=== PATIENT | male | born 1980 | race Caucasian/White ===

== ENCOUNTER 2020-09-01 10:43 | Emergency (ER) | payer OTHER, SELFPAY ==
[2020-09-01 10:45] VITALS: BP 141/100; PULSE 87; RESP 18; TEMP 36.1; O2SAT 99; BMI 33.5
--- NOTE | 2020-09-01 10:46 | NURSING ---
NO OLD EKGS
[2020-09-01 10:49] VITALS: BP 135/94; PULSE 70; RESP 16; O2SAT 97
--- NOTE | 2020-09-01 11:05 | EKG12_ITS ---
Test Reason : CP Blood Pressure : / mmHG Vent. Rate : 064 BPM Atrial Rate : 064 BPM P-R Int : 176 ms QRS Dur : 090 ms QT Int : 388 ms P-R-T Axes : 035 008 024 degrees QTc Int : 400 ms Normal sinus rhythm Normal ECG Confirmed by ANDREA MCKEON, VAMSI ([id number]), editor managing newspaper GISELA MURRIETA ([id number]) on 09/04/2020 11:39:10 A M Referred By: AKIL Confirmed By:TIANNA MENDEZ MD
--- NOTE | 2020-09-01 11:06 | ED.VISSUMM ---
- ER Visit Summary Date of Service: 09/01/20 Chief Complaint: Chest pain History of Present Illness: The patient is a 39 M who presents with chest pain that has been constant for the past 5 days. Patient states it is gradually gotten worse. Patient describes the pain is dull. Patient states the pain is over the substernal area. Patient states nothing makes it better and nothing makes it worse. Patient admits to some mild shortness of breath. Patient also admits to some lightheadedness. Patient denies any nausea or vomiting. Patient denies any diaphoresis. Patient denies any fevers or chills. Patient denies any cough or palpitations. Patient denies any cardiac or PE risk factors. Physical Examination: Vital signs are stable. Patient is afebrile. Patient is in no acute distress. Oral mucosa is pink and moist. Neck is supple. Trachea is midline. There is no JVD noted. Heart was regular rate and rhythm. Lungs are clear and equal bilaterally. Abdomen is soft. Bowel sounds are normal. There is no tenderness. There is no rebound or guarding noted. Skin is warm dry. Cranial nerves II through XII are intact. There are no focal motor or sensory deficits noted. Extremities are intact. There is no calf tenderness or edema. Test Results: EKG was obtained. On my interpretation, there is a normal sinus rhythm with a rate of 64. There are no acute ST or T wave changes. Portable 1 view chest x-ray was obtained. On my interpretation, lung bishop are clear. There is normal cardiac silhouette. Bony thorax is normal. There is no acute process noted. Radiologist also interpreted the x-ray and agrees. CBC, basic metabolic profile, and troponin were obtained and were all within normal limits. Emergency Department Course and Treatment: Patient was given aspirin here. Patient is feeling better on reevaluation. Patient was advised of his findings. Patient has a HEART score of 1. Patient was advised that this is low risk for acute cardiac event. Patient was instructed to follow-up with his primary care physician in 5 to 7 days. Patient understood and was agreeable with the plan. All questions were answered. Disposition: Discharge home Impression: Chest pain of uncertain etiology This note was generated with [employer] dictation software. It may contain incorrect words, spelling, and punctuation that were not noted in review of the chart prior to signing ED Disposition - Plan for ED Patient: Disposition: Home or Assisted Living Diagnosis: Chest pain of uncertain etiology Instructions: ED Chest Pain, Uncertain Cause Referrals: David,Steff, [NON-STAFF] - 5-7 Days
[2020-09-01 11:21] LABS: Absolute Lymphocyte Count 1.45 X10^3/uL (0.83-4.51); Absolute Neutrophil Count 5.4 X10^3/uL (2.0-7.7); Basophil# 0.06 X10^3/uL; Basophil% 0.8 % (0-1); Eosinophil# 0.07 X10^3/uL; Eosinophils% 0.9 % (0-5); Hematocrit 53.6 % (40-54); Hemoglobin 18.1 g/dL (13.0-16.5); Lymphocyte # 1.45 X10^3/ul (4.0); Lymphocyte % 19.3 % (19-41); Mean Corp Hgb Conc 33.8 g/dL (32-36); Mean Corpuscular Hgb 30.7 pg (27.0-32.0); Mean Platelet Vol. 8.6 fl (6.2-12.0); Monocyte# 0.52 X10^3/uL; Monocyte% 6.9 % (0-10); NRBC Flagged by Analyzer 0 % (0-5); Neutrophil % 71.8 % (47-70); Platelet Count 308 K/mm3 (150-450); RBC Distribution Width CV 11.7 % (11.6-14.6); Red Blood Count 5.89 M/mm3 (4.6-6.2); White Blood Count 7.5 K/mm3 (4.4-11.0)
[2020-09-01 11:33] LABS: Anion Gap 1 (5-15); BUN 19 mg/dL (7-18); BUN/Creat Ratio 14.7 RATIO (10-20); Calcium,Total 8.9 mg/dL (8.5-10.1); Chloride 102 mmol/L (98-107); Creatinine, Serum 1.29 mg/dL (0.70-1.30); EST Glomerular Filtration Rate 66 mL/min (>60); Est Glom Filt Rate - Afr Amer 79 mL/min (>60); Estimated Creatinine Clearance 94.39 ml/min; Glucose 84 mg/dL (74-106); Potassium 4.3 mmol/L (3.5-5.1); Sodium Level 136 mmol/L (136-145)
[2020-09-01 11:37] LABS: Differential Indicated SCAN CRITERIA MET
[2020-09-01 11:41] VITALS: O2SAT 97
--- NOTE | 2020-09-01 11:45 | RAD_ITS ---
STUDY: X-RAY CHEST REASON FOR EXAM: Male, 39 years old. CHEST HEAVINESS TECHNIQUE: Single AP portable view of the chest. COMPARISON: None. FINDINGS: EKG electrodes are seen. The lungs are clear and expanded. There is no demonstrated pleural abnormality. Normal size heart. Normal mediastinum and hector. Normal visualized pulmonary arteries. Normal visualized aortic arch and descending thoracic aorta. Normal visualized thoracic spine. Normal visualized ribs, clavicles, and shoulders. There is no demonstrated abnormality of the visualized soft tissue structures of the upper abdomen. RAD/Chest 1 View (Portable) IMPRESSION: Normal x-ray examination of the chest. Electronically Signed: Cortez Cagle MD at 12:25 EST , Service support ,
[2020-09-01 12:37] VITALS: PULSE 64; RESP 17; O2SAT 97
[2020-09-01 13:40] VITALS: BP 134/76; PULSE 68; RESP 17; O2SAT 95
[2020-09-04 14:08] LABS: Pathologist Review Reviewed
== END 2020-09-01 13:40 | disposition home or self-care (01) ==
PROVIDERS: Emergency Provider Emergency Medicine; PCP Nurse Practitioner Family
DX: R07.9 Chest pain, unspecified (principal)
CPT/HCPCS: 71045; 80048; 84484; 85025; 93005; 99285; A4216